=== PATIENT | male | born 1975 | race Caucasian/White ===

== ENCOUNTER → 2018-03-30 | Outpatient (CLI) | payer BC ==
--- NOTE | 2018-03-30 10:06 | US ---
EXAMINATION TYPE: US abdomen complete DATE OF EXAM: 03/30/2018 COMPARISON: NONE CLINICAL HISTORY: R10.9 abdominal pain, unspecified. Abdomen pain and nausea x couple months, heartbu rn EXAM MEASUREMENTS: Liver Length: 14.7 cm Gallbladder Wall: 0.2 cm CBD: 0.3 cm Spleen: 12.8 cm Right Kidney: 10.8 x 5.4 x 5.0 cm Left Kidney: 10.4 x 5.9 x 5.4 cm Pancreas: visualized portions wnl, body and tail obscured by overlying midline bowel gas Liver: wnl Gallbladder: cholelithiasis, 0.5cm stone within neck, wall measures wnl Evidence for sonographic Ballesteros's sign: yes CBD: visualized portions wnl, limited by overlying bowel gas Spleen: wnl Right Kidney: wnl Left Kidney: wnl Upper IVC: wnl Abd Aorta: wnl The visualized liver is homogenous. The intrahepatic portion of the IVC and visualized mid and dista l abdominal aorta are within normal limits. There is no evidence of cholelithiasis. Common al abd ominal aorta are within normal limits. There are small shadowing mobile gallstones in gallbladder. N o pericholecystic fluid or abnormal gallbladder wall thickening is present. Common bile duct is unrem arkable. The visualized portions of the pancreas are homogenous. Portions of pancreas are suboptima lly evaluated as are obscured by overlying bowel gas on images saved. The spleen is upper limits of n ormal without surrounding ascites. Kidneys are symmetric and free of hydronephrosis. No renal lesio ns are seen. IMPRESSION: Gallstones without secondary ultrasound evidence for acute cholecystitis. In patient with pain and nausea and positive sonographic Ballesteros's sign is not entirely excluded. Consider HIDA scan follow-up.
== END | disposition home or self-care (01) ==
LOC: RADUSWWP 06:43
PROVIDERS: ATTEND Family Medicine
DX: K80.20 Calculus of gallbladder without cholecystitis without obstruction (principal)
CPT/HCPCS: 76700